=== PATIENT | female | born 1985 | race Caucasian/White ===

== ENCOUNTER 2017-08-17 08:00 | Outpatient (CLI) | payer OTHER ==
[2017-08-17 12:26] LABS: BILIRUBIN,URINE NEGATIVE (NEGATIVE); GLUCOSE, URINE (UA) NEGATIVE (NEGATIVE); KETONES,URINE (UA) NEGATIVE (NEGATIVE); LEUKOCYTE ESTERASE, URINE NEGATIVE (NEGATIVE); NITRITE,URINE NEGATIVE (NEGATIVE); OCCULT BLOOD,URINE NEGATIVE (NEGATIVE); PH,URINE 7.5 PH (5.0-7.5); PROTEIN,URINE TRACE mg/dL (NEGATIVE); UROBILINOGEN,URINE 0.2 (NORMAL) E.U./dL (NORMAL)
[2017-08-17 12:35] LABS: AMORPHOUS SEDIMENT,UR Few /LPF; BACTERIA,URINE None Seen /HPF (None Seen); CLARITY,URINE CLEAR (CLEAR); MUCUS,URINE Few Strands; RBC,URINE None Seen /HPF (0-5); SQUAMOUS EPITHELIAL CELL,UR FEW Squamous (<= Few)
[2017-08-17 12:52] LABS: BASOPHILS % (AUTO) 0.6 %; EOSINOPHILS # (AUTO) 0.3 10^3/uL (0.0-0.7); EOSINOPHILS % (AUTO) 3.8 %; HGB - HEMOGLOBIN 13.2 g/dL (12.0-16.0); LYMPHOCYTES # (AUTO) 1.4 10^3/uL (1.5-3.5); LYMPHOCYTES % (AUTO) 19.5 %; MEAN CORPUSCULAR VOLUME 88.2 fL (81.0-99.0); MEAN PLATELET VOLUME 9.7 fL (7.9-10.8); MONOCYTES # (AUTO) 0.4 10^3/uL (0.0-1.0); MONOCYTES % (AUTO) 4.8 %; NEUTROPHILS # (AUTO) 5.2 10^3/uL (1.5-6.6); NEUTROPHILS % (AUTO) 71.3 %; PLT - PLATELET COUNT 204 10^3/uL (130-450); RED BLOOD COUNT 4.38 10^6/uL (4.20-5.40); RED CELL DISTRIBUTION WIDTH 13.7 % (12.0-15.0); WHITE BLOOD COUNT 7.3 x10^3/uL (4.8-10.8)
[2017-08-18 13:16] LABS: HEPATITIS B SURFACE ANTIGEN NON-REACTIVE (NON-REACTIVE); HEPATITIS C ANTIBODY NON-REACTIVE (NON-REACTIVE)
[2017-08-18 15:27] LABS: HIV AG/AB 4TH GEN NON-REACTIVE (NON-REACTIVE)
== END 2017-08-17 08:01 | disposition home or self-care (01) ==
LOC: LAB.N 08:00
PROVIDERS: ATTEND Obstetrics & Gynecology
DX: Z34.81 Encounter for supervision of other normal pregnancy, first trimester (principal)
CPT/HCPCS: 36415; 81001; 81599; 85025; 86592; 86762; 86803; 86850; 86900; 86901; 87340; 87389

== ENCOUNTER 2017-08-31 08:00 | Outpatient (CLI) | payer OTHER | END 2017-08-31 08:01 | disposition home or self-care (01) | LOC: LAB.N 08:00 | PROVIDERS: ATTEND Obstetrics & Gynecology | DX: Z13.79 Encounter for other screening for genetic and chromosomal anomalies (principal) | CPT/HCPCS: 36415; 81599; 82105; 82677; 84702; 86336 ==

== ENCOUNTER 2017-09-29 08:00 | Outpatient (CLI) | payer OTHER ==
[2017-09-29 19:26] LABS: THYROID STIMULATING HORMONE 1.77 uIU/mL (0.34-5.60)
[2017-09-29 19:28] LABS: FREE T4 (FREE THYROXINE) 0.76 ng/dL (0.58-1.64)
== END 2017-09-29 08:01 ==
LOC: LAB.WCP 08:00
PROVIDERS: ATTEND Physician Assistant
DX: E03.9 Hypothyroidism, unspecified (principal)
CPT/HCPCS: 36415; 84439; 84443

== ENCOUNTER 2017-10-14 11:46 | Outpatient (CLI) | payer SELFPAY | END 2017-10-14 11:47 | disposition home or self-care (01) | LOC: LAB 11:46 | PROVIDERS: ATTEND Obstetrics & Gynecology | DX: Z01.89 Encounter for other specified special examinations (principal) | CPT/HCPCS: 36415 ==

== ENCOUNTER 2017-10-26 07:27 | Outpatient (CLI) | payer OTHER ==
--- NOTE | 2017-10-26 10:20 | Ultrasound Report ---
Procedure Date: 10/26/2017 Accession Number: [id number] / [id number] Procedure: US - OB Detailed Eval CPT Code: FULL RESULT: EXAM: COMPLETE OBSTETRICAL ULTRASOUND EXAM DATE: 10/26/2017 09:25 AM. CLINICAL HISTORY: anatomic survey. COMPARISON: None. TECHNIQUE: Real-time sonographic evaluation of the fetus performed by the director of exhibit development. Multiple guest relations representative static images were saved for review. Additional transvaginal imaging to more accurately evaluate cervical length/placental position/etc. DATING: EGA 23w 2d with CHARLES 02/20/2018 based on LMP. EGA 23w 5d with CHARLES 02/17/2018 based on the current ultrasound. GENERAL EVALUATION Laura . Cardiac activity: 133 bpm. movement: Visualized. Presentation: Norberto breech. Placenta: Posterior position. No evidence for previa. Umbilical cord: 3 vessel cord. Central placental cord origin. Amniotic fluid: Subjectively normal. MVP 5.1 cm. BIOMETRY Bi-Parietal Diameter (BPD): 5.69 cm, 23w 3d Head Circumference (HC): 21.3 cm, 23w 3d Abdominal Circumference (AC): 19.1 cm, 23w 6d Femur Length (FL): 4.3 cm, 24w 2d Estimated Weight: 646 gm, 74th percentile for 23w 5d. ANATOMY The intracranial structures, profile, face/nose/lips, spine, 4 chamber heart and outflow tracts, stomach, abdominal wall and cord insertion, diaphragm, kidneys, bladder, and extremities were visualized and demonstrate no abnormality. MATERNAL STRUCTURES Uterus: Unremarkable. Cervix: Long and closed. Right ovary/adnexa: Unremarkable. Left ovary/adnexa: Unremarkable. Free fluid: None. IMPRESSION: 1. Laura live intrauterine with gestational age 23w 5d based on current ultrasound. 2. Estimated weight is within expected limits for assigned dating. 3. Normal anatomic survey. No anatomic abnormalities are detected at this time. RADIA
== END 2017-10-26 07:28 | disposition home or self-care (01) ==
LOC: DI 07:27
PROVIDERS: ATTEND Obstetrics & Gynecology
DX: Z36.9 Encounter for antenatal screening, unspecified (principal)
CPT/HCPCS: 76811

== ENCOUNTER 2017-11-30 11:13 | Outpatient (CLI) | payer OTHER ==
[2017-11-30 19:26] LABS: THYROID STIMULATING HORMONE 1.09 uIU/mL (0.34-5.60)
[2017-11-30 19:28] LABS: FREE T4 (FREE THYROXINE) 0.63 ng/dL (0.58-1.64)
[2017-11-30 19:53] LABS: HGB - HEMOGLOBIN 12.6 g/dL (12.0-16.0); MEAN CORPUSCULAR HEMOGLOBIN 32.2 pg (27.0-31.0); MEAN CORPUSCULAR HGB CONC 34.2 g/dL (32.0-36.0); MEAN PLATELET VOLUME 9.5 fL (7.9-10.8); RED BLOOD COUNT 3.92 10^6/uL (4.20-5.40); WHITE BLOOD COUNT 10.2 x10^3/uL (4.8-10.8)
== END 2017-11-30 11:14 | disposition home or self-care (01) ==
LOC: LAB.N 11:13
PROVIDERS: ATTEND Obstetrics & Gynecology
DX: Z36.9 Encounter for antenatal screening, unspecified (principal); Z13.29 Encounter for screening for other suspected endocrine disorder
CPT/HCPCS: 36415; 82950; 84439; 84443; 84481; 85027; 86850

== ENCOUNTER 2018-01-19 09:15 | Outpatient (CLI) | payer OTHER ==
[2018-01-19 09:39] VITALS: BP 119/77
== END 2018-01-19 10:45 | disposition home or self-care (01) ==
LOC: WFO 09:15 → FBP 09:19 → WFO 10:45
PROVIDERS: ATTEND Obstetrics & Gynecology
DX: Z03.79 Encounter for other suspected maternal and fetal conditions ruled out (principal)
CPT/HCPCS: 99212

== ENCOUNTER → 2018-01-19 | Outpatient (CLI) | payer OTHER | LOC: LAB.R 15:13 | PROVIDERS: ATTEND Registered Nurse | DX: Z36.85 Encounter for antenatal screening for Streptococcus B (principal) | CPT/HCPCS: 87081 ==

== ENCOUNTER 2018-01-26 10:36 | Outpatient (CLI) | payer OTHER ==
--- NOTE | 2018-01-26 15:42 | Ultrasound Report ---
Reason: SIZE GREATER THAN DATES Procedure Date: 01/26/2018 Accession Number: [id number] / [id number] Procedure: US - OB F/U or Repeat CPT Code: FULL RESULT: EXAM: COMPLETE OBSTETRICAL ULTRASOUND EXAM DATE: 01/26/2018 11:45 AM. CLINICAL HISTORY: anatomic survey. COMPARISON: OB Detailed Evaluation 10/26/2017 7:45 AM. TECHNIQUE: Real-time sonographic evaluation of the fetus performed by the throat cutter. Multiple group sales representative static images were saved for review. Additional transvaginal imaging to more accurately evaluate cervical length/placental position/etc. DATING: Established EGA 36 weeks 3 days with CHARLES 02/20/2018 based on last menstrual period which is concordant with the prior ultrasound. EGA 36 weeks 3 days with CHARLES 02/20/2018 based on last menstrual period which was concordant with a prior ultrasound. EGA 40 weeks and 0 days with CHARLES 01/26/2018 based on the current ultrasound. GENERAL EVALUATION Laura . Cardiac activity: 142 bpm. movement: Visualized. Presentation: Transverse Placenta: Fundal position. No evidence for previa. Umbilical cord: 3 vessel cord. Amniotic fluid: Subjectively normal. MVP 15 cm. BIOMETRY Bi-Parietal Diameter (BPD): 9.53 cm, 38 weeks 6 days Head Circumference (HC): 35.5 cm, 41 weeks 4 days Abdominal Circumference (AC): 34.9 cm, 38 weeks 6 days Femur Length (FL): 7.3 cm, 37.3 Estimated Weight: 3612 g, 97th percentile for assigned gestational age by LMP of 36 weeks 3 days. ANATOMY Within limitations for late dates and size, no abnormalities demonstrated. MATERNAL STRUCTURES Uterus: Unremarkable. Cervix: Long and closed. Transabdominal length 7.6 cm. Right ovary/adnexa: Not specifically imaged Left ovary/adnexa: Not specifically imaged Free fluid: None appreciated IMPRESSION: 1. Laura live intrauterine with gestational age 36 weeks 3 days based on last menstrual period.. 2. Fetus is enlarged for dates. Estimated weight is at the 97th percentile for assigned dating 36 weeks 3 days by LMP. 3. Within limitations of size, no abnormalities detected. RADIA
== END 2018-01-26 10:37 | disposition home or self-care (01) ==
LOC: DI 10:36
PROVIDERS: ATTEND Obstetrics & Gynecology
DX: Z36.4 Encounter for antenatal screening for fetal growth retardation (principal); Z3A.36 36 weeks gestation of pregnancy
CPT/HCPCS: 76816

== ENCOUNTER 2018-02-15 14:23 | Outpatient (CLI) | payer OTHER ==
[2018-02-15 14:59] LABS: BASOPHILS % (AUTO) 0.5 %; EOSINOPHILS # (AUTO) 0.3 10^3/uL (0.0-0.7); EOSINOPHILS % (AUTO) 2.7 %; HGB - HEMOGLOBIN 11.4 g/dL (12.0-16.0); LYMPHOCYTES # (AUTO) 1.4 10^3/uL (1.5-3.5); LYMPHOCYTES % (AUTO) 14.3 %; MEAN CORPUSCULAR HEMOGLOBIN 30.8 pg (27.0-31.0); MEAN CORPUSCULAR HGB CONC 35.1 g/dL (32.0-36.0); MEAN CORPUSCULAR VOLUME 87.8 fL (81.0-99.0); MEAN PLATELET VOLUME 9.9 fL (7.9-10.8); MONOCYTES # (AUTO) 0.7 10^3/uL (0.0-1.0); MONOCYTES % (AUTO) 7.7 %; NEUTROPHILS # (AUTO) 7.1 10^3/uL (1.5-6.6); NEUTROPHILS % (AUTO) 74.8 %; PLT - PLATELET COUNT 149 10^3/uL (130-450); RED BLOOD COUNT 3.71 10^6/uL (4.20-5.40); RED CELL DISTRIBUTION WIDTH 14.9 % (12.0-15.0); WHITE BLOOD COUNT 9.5 x10^3/uL (4.8-10.8)
== END 2018-02-15 14:24 | disposition home or self-care (01) ==
LOC: LAB 14:23
PROVIDERS: ATTEND Obstetrics & Gynecology
DX: Z01.812 Encounter for preprocedural laboratory examination (principal); O34.211 Maternal care for low transverse scar from previous cesarean delivery
CPT/HCPCS: 36415; 85025; 86850; 86900; 86901

== ENCOUNTER 2018-02-17 05:08 | Inpatient (IN) | payer OTHER ==
--- NOTE | 2018-02-15 19:00 | HISTORY & PHYSICAL EXAMINATION ---
IDENTIFICATION: A 32-year-old G3, P2-0-0-2 with 39-4/7 week intrauterine . EDC is 02/20/2018 by LMP of 05/16/2017, 11-week ultrasounds consistent with dates. HISTORY OF PRESENT ILLNESS: Patient is a patient of [facility] presents today for regularly scheduled preoperative visit. Patient has seen us since the beginning of this at 10 weeks' gestation. She has had routine care and this has been essentially unremarkable. Patient has had 2 deliveries for sons Neal and Eduardo. Neal was a delivery secondary to suspected macrosomia. He weighed 9 pounds 12 ounces and second son Eduardo weighed 9 pounds 2 ounces. I discussed with the patient my recommendation to proceed with a delivery given her two prior deliveries. I discussed with her the risks, benefits, alternatives, indications, expectations of surgery. This included, but was not limited to an inadvertent laceration, cauterization or ligation of the adjacent intestines, bladder and ureters. Also, with this surgery, she would need to have a repeat delivery for future pregnancies. After patient's questions were answered to her satisfaction, she verbalized her desire to proceed with surgery. Consent forms have been signed. Patient is doing well otherwise today. She denies any nausea, vomiting, fevers, chills, or diarrhea. She states that the baby is moving well. She denies any vaginal bleeding or loss of fluid. PAST MEDICAL HISTORY: Resolved hypothyroidism. She did take medications in 2016. PAST SURGICAL HISTORY 1. Thyroid biopsy. 2. Tonsillectomy and adenoidectomy. 3. delivery x2. ALLERGIES: NO KNOWN DRUG ALLERGIES. MEDICATIONS: vitamins. SOCIAL HISTORY: Denies any tobacco, alcohol or illicit drug use. 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 She is accompanied today with her mom Aliyah. She has 2 other children Neal and Eduardo. This is a male fetus. Patient's preferred pharmacy is [facility] in [place]. She plans to breast feed via pumping. She breastfed for 3 months and then 6 months with her first 2 children. She denies any problems with . Her preferred wringer and setter is Dr. Alamo. PAST SURGICAL HISTORY: Two term deliveries PAST GYNECOLOGIC HISTORY: She denies any abnormal Pap smears or sexually transmitted diseases. FAMILY HISTORY: Noncontributory. No female carcinoma. REVIEW OF SYSTEMS: Negative unless otherwise stated. OBJECTIVE VITAL SIGNS: Height is 62.75 inches, weighs 206 pounds, blood pressure 110/74, BMI is 36.9. GENERAL: Patient is a well-developed, well-nourished, female, in no apparent distress. She is alert and oriented x3. Patient is very pleasant, easy to speak to. HEENT: Within normal limits. She does wear glasses. CARDIOVASCULAR: Regular. No murmurs or rubs. PULMONARY: Lungs clear to auscultation bilaterally. ABDOMEN: Gravid, nontender. Fetus appears to be vertex by Rajat's with estimated weight of 10 pounds. laboratories reveal that she is hep C nonreactive, hep B nonreactive. HIV nonreactive, RPR nonreactive. White blood count 7.3, H and H 13.2 and 38.7, platelets 204. She is O positive, antibody screen is negative. Rubella is immune. On 07/30/2017 pap is negative as well as high-risk HPV screening. GC and CT were both negative. 10/18/2017 harmony was negative x3 and a male fetus was noted. Her anatomical anatomical survey was consistent with dates and within normal limits. The placenta is posterior with a 3-vessel cord. One-hour GTT was 111 with a white count of 10.2, H and H of 12.6 and 36.8, platelets 234. TSH was normal at 1.09 and free T4 0.63. Antibody screen negative. GBS was negative. ASSESSMENT: 1. A 32-year-old G3, P2-0-0-2 with a 39 and 2/7 week intrauterine . 2. History of delivery x2. PLAN: 1. We will proceed to a scheduled repeat delivery on 02/17/2018. 2. Patient can get her labs in preparation for surgery, including a CBC and type and screen. 3. Prescriptions for Tylenol, Motrin, Colace, simethicone and oxycodone have been given to patient for postoperative recovery. 4. We will anticipate using the Prevena wound VAC and patient to return on Thursday for removal of her wound VAC. TD: 02/15/2018 14:13 COY
[2018-02-17] MEDS ORDERED: SODIUM CHLORIDE FLUSH 0.9% 10 ML SYRINGE IVP PRN (05:30)
[2018-02-17] MEDS ORDERED: ONDANSETRON 4 MG/2 ML VIAL IVP PRN (05:30)
[2018-02-17] MEDS: LACTATED RINGERS 1,000 ML IV SCH ×3 (05:44→18:51)
[2018-02-17] MEDS ORDERED: ceFAZolin 2 GM/50 ML 2 GM/50 ML BAG IV ONE (07:00)
[2018-02-17] MEDS ORDERED: CITRIC ACID/SODIUM CITRATE 15 ML UDC PO ONE (07:00)
--- NOTE | 2018-02-17 07:24 | ANESTHESIA ---
Pre-Anesthesia VS, & Labs - Diagnosis term with previous c section - Procedure c section Vital Signs: Temp Pulse Resp BP Pulse Ox 36.7 C 97 18 127/78 97 02/17/18 07:19 02/17/18 07:19 02/17/18 07:19 02/17/18 07:19 02/17/18 07:19 Height 5 ft 2 in Weight (kg) 93.44 kg - NPO >8 hours - Is Patient ?: Yes - Lab Results Lab results reviewed: Yes Home Medications and Allergies Active Medications Cefazolin Sodium/Dextrose (Ancef 2 Gm/50 Ml) 2 gm in 50 mls @ 100 mls/hr IV ONCE ONE Stop: 02/17/18 07:29 Last Admin: 02/17/18 06:12 Dose: 100 mls/hr Lactated Ringer's (Lr) 1,000 mls @ 150 mls/hr IV .Q6H40M YASEMIN Last Admin: 02/17/18 05:44 Dose: 150 mls/hr Oxytocin/Sodium Chloride (Pitocin/Sodium Chloride) 500 mls @ 1 mls/hr IV TITR YASEMIN; Protocol Ondansetron HCl (Zofran Inj) 4 mg IVP Q4H PRN PRN Reason: Nausea / Vomiting Sodium Chloride (Normal Saline Flush 0.9%) 10 ml IVP PRN PRN PRN Reason: NEEDED PER PROVIDER ORDERS Sodium Chloride (Normal Saline Flush 0.9%) 10 ml IVP 0100,0900,1700 [facility] Allergies/Adverse Reactions: Allergies Allergy/AdvReac Type Severity Reaction Status Date / Time No Known Drug Allergies Allergy Verified 03/24/15 18:45 Anes History & Medical History - Anesthetic History Anesthesia Complications: reports: Post-Operative Nausea/Vomiting Family history of Anesthesia Complications: Denies Family history of Malignant Hyperthermia: Denies - Medical History Smoking Status: Never smoker - Surgical History Eyes Ears Nose Throat (EENT): Tonsil/Adenoidectomy Gynecologic: section Exam General: Alert, Oriented x3, Cooperative, No acute distress Dental: WNL Mouth Openin Fingerbreadth Neck Mobility: Normal Mallampati classification: II Thyromental Distance: 4-6 cm Respiratory: Lungs clear, Normal breath sounds, No respiratory distress, No accessory muscle use Cardiovascular: Regular rate, Normal S1, Normal S2, No murmurs Mental/Cognitive Status: Alert/Oriented X3, Normal for patient Plan Anesthesia Type: Spinal Consent for Procedure(s) Verified and Reviewed: Yes Code Status: Attempt Resuscitation ASA classification: 2-Mild systemic disease Is this case an emergency?: No
[2018-02-17] MEDS ORDERED: LACTATED RINGERS 1,000 ML IV ONE ×2 (08:14→08:33)
[2018-02-17] MEDS ORDERED: DEXAMETHASONE 4 MG/ML VIAL IVP ONE (08:25)
[2018-02-17] MEDS ORDERED: PHENYLEPHRINE 50 MG/5 ML VIAL IV ONE (08:25)
[2018-02-17] MEDS ORDERED: KETOROLAC 30 MG/ML VIAL IVP ONE (08:25)
[2018-02-17] MEDS ORDERED: ePHEDrine 50 MG/ML VIAL IVP ONE (08:25)
[2018-02-17] MEDS ORDERED: ONDANSETRON 4 MG/2 ML VIAL IVP ONE (08:25)
[2018-02-17] MEDS ORDERED: MAGNESIUM HYDROXIDE 2,400 MG/30 ML UDC PO PRN (09:00)
[2018-02-17] MEDS ORDERED: diphenhydrAMINE 25 MG CAPSULE PO PRN (09:00)
--- NOTE | 2018-02-17 09:05 | OPERATIVE REPORT ---
Operative Report - General Admit Date: 02/17/18 - Other Other Information/Narrative: Date of operation: 02/17/2018 Surgeon: Khadra Villarreal DO FACOG Field Trainer: Ger Edgar MD FACOG Hire Car Driver: Akira More CRNA Anesthesia: Spinal Pre-Op Dx: 1. 32 yo with a 39w5d IUP 2. Prior CD x 2 Post-op Dx: 1. 32 yo with a 39w5d IUP 2. Prior CD x 2 Procedure: Repeat Delivery via LTCS Findings: Viable male infant, breech, named Yomi. Apgars 8/9. Normal uterus, ovaries and fallopian tubes. Specimens: 1. Cord blood 2. Placenta EBL: 800 mL Drains: 1. Worley to gravity 2. Prevena wound vac Complications: None Dictation: [id number]
[2018-02-17] MEDS: SODIUM CHLORIDE FLUSH 0.9% 10 ML SYRINGE IVP SCH ×2 (09:56→14:38)
[2018-02-17] MEDS: OXYTOCIN/SODIUM CHLORIDE 500 ML IV SCH ×2 (09:57→10:58)
[2018-02-17] MEDS: CELECOXIB 100 MG CAPSULE PO SCH (11:23)
[2018-02-17] MEDS: DOCUSATE SODIUM 100 MG CAPSULE PO SCH (11:23)
[2018-02-17] MEDS: ACETAMINOPHEN 500 MG TABLET PO SCH ×2 (11:26→20:33)
[2018-02-17] MEDS: oxyCODONE 5 MG TABLET PO SCH ×4 (12:41→20:32)
--- NOTE | 2018-02-17 13:31 | OPERATIVE REPORT ---
DATE OF OPERATION: 02/17/2018 SURGEON: Khadra Villarreal DO, FACOG. DECK MECHANIC: Ger Edgar MD, FACOG. ANESTHESIA PROVIDER: Yohan More CRNA. ANESTHESIA: Spinal. PREOPERATIVE DIAGNOSES 1. A 32-year-old G3, P2-0-0-2 with 39-5/7-week intrauterine . 2. Prior delivery x2. POSTOPERATIVE DIAGNOSES 1. A 32-year-old G3, P2-0-0-2 with 39-5/7-week intrauterine . 2. Prior delivery x2. PROCEDURE: Repeat delivery via low transverse section. FINDINGS: A viable male in breech presentation, named Yomi. Apgars are 8 and 9 at one and five minutes respectively and weight 4406 gm. Normal ovaries, fallopian tubes, and uterus were noted. SPECIMENS 1. Cord blood. 2. Placenta. ESTIMATED BLOOD LOSS: 800 mL DRAINS 1. Worley catheter to gravity. 2. Prevena wound VAC. COMPLICATIONS: None. BRIEF HISTORY: This is a patient of [facility] with whom I have been taking care throughout the majority of her . She was a transfer of care from the [facility]. Patient's course has been remarkable for 2 prior deliveries. The first one was secondary to suspected macrosomia. The second one was a scheduled repeat delivery. I discussed with patient the risks, benefits, alternatives, indications, expectations of repeat delivery. Included in our discussion were the risks of hemorrhage, infection, damage to internal organs, which may include but is not limited to an inadvertent laceration, cauterization or ligation of the adjacent intestines, bladder, and ureters. Furthermore, with a delivery, she would have to have a repeat delivery for any future pregnancies. After all of patient's questions were answered to her satisfaction, she verbalized a desire to proceed with surgery. Consent forms have been signed. OPERATION DETAIL: Patient was identified, consented, and taken to the operating room where IV access was already in place. She was then given satisfactory spinal anesthesia as per Raciel More. Sequential compression devices were placed on her lower extremities and turned on. Worley catheter was placed in her bladder, and she was prepped and draped in the normal sterile fashion in a dorsal supine position with leftward tilt. Patient was given 2 grams of Ancef prior to incision. Skin testing showed that she had adequate anesthesia. Timeout was performed, where we correctly identified the site of procedure, the patient, and her date of . Patient's prior Pfannenstiel incision was first sharply removed. This incision was then carried to the underlying layer of fascia with electrocautery. The fascia was then nicked in midline and extended laterally. Rectus muscles were then dissected off the fascia. Rectus muscles were then diverted sharply vertically in the midline. The peritoneum was then entered bluntly. A bladder flap was then created by dissecting off the vesicouterine peritoneum. It was noted there was significantly thin uterine window. The hysterotomy was made in transverse U-shaped fashion in the lower uterine segment. Amniotomy revealed clear fluid. The infant's feet were identified and gently pulled through the hysterotomy after a green towel was placed around the . The was then delivered through to the level of the nipples. The left side was rotated anteriorly, and the left arm was then delivered by placing the arm medially and then inferiorly in order to avoid hyperextension of the arm. In a similar fashion, the left shoulder was rotated anteriorly, and the arm was then swept medially and inferiorly. A finger was then placed in the fetus's mouth in order to flex the neck, and the baby was delivered with the help of fundal pressure. Nose and mouth were suctioned with a bulb syringe. Umbilical cord was doubly clamped and cut, and the infant was then handed off to waiting OB nurse. Cord blood was obtained and sent off. The uterus was then massaged internally and the placenta delivered manually. Uterus then delivered out of the abdomen and cleared of all clots and debris. The hysterotomy was repaired with 2 sutures of 0 Vicryl, first in a running locked fashion, second a Lembert stitch in order to obtain hemostasis. The uterus was then returned to the abdomen, and the abdomen was then copiously irrigated. Hemostasis was noted. The peritoneum was then closed with a running stitch of 2-0 Vicryl. The same stitch was used to reapproximate the rectus muscles. Fascia was then closed with 2 stitches of 0 Vicryl in a running fashion. Cristhian's fascia was then reapproximated with a running stitch of 0 Vicryl. Skin was closed with a 4-0 Monocryl in a subcuticular fashion. Finally, Prevena wound VAC was placed on top of incision. Patient tolerated the procedure well and was taken back to recovery room in stable and awake condition. She will be given routine care, including kcpjux-doe-vzodu NSAIDs and Tylenol. She will also be given routinely scheduled oxycodone. I anticipate removing her Worley catheter in the a.m. All sponge, lap, and needle counts were correct x2 as per nurse report. TD: 02/17/2018 10:44 MTDKassandra
[2018-02-17] MEDS: SIMETHICONE CHEW 80 MG TABLET PO SCH ×2 (13:35→20:33)
[2018-02-18] MEDS: DOCUSATE SODIUM 100 MG CAPSULE PO SCH ×3 (00:24→21:08)
[2018-02-18] MEDS: oxyCODONE 5 MG TABLET PO SCH ×6 (00:24→21:10)
[2018-02-18] MEDS: CELECOXIB 100 MG CAPSULE PO SCH ×3 (00:24→21:09)
[2018-02-18] MEDS: ACETAMINOPHEN 500 MG TABLET PO SCH ×3 (05:25→21:09)
[2018-02-18] MEDS: SIMETHICONE CHEW 80 MG TABLET PO SCH ×3 (09:18→17:55)
[2018-02-18] MEDS: SODIUM CHLORIDE FLUSH 0.9% 10 ML SYRINGE IVP SCH ×3 (09:18→18:50)
[2018-02-18] MEDS: LACTATED RINGERS 1,000 ML IV SCH ×3 (09:18→14:14)
--- NOTE | 2018-02-18 12:51 | PROVIDER PROGRESS NOTE ---
Subjective - Prog Note Date Prog Note Date: 02/18/18 Prog Note Time: 12:48 - Subjective Pt reports feeling: Improved Subjective: Sherry lying in bed with Yomi in the bassinet at bedside. Mom Christie in the visitor's bed. Sherry's pain is well controlled with 10 mg oxycodone. Worley removed and she has ambulated and urinated. Otherwise doing well. Objective - Vital Signs/Intake & Output Vital Signs: Vital Signs x48h Temp Pulse Resp BP Pulse Ox 02/18/18 07:45 99.1 F 81 15 101/62 97 Intake & Output: Intake & Output 02/15/18 02/16/18 02/17/18 02/18/18 23:59 23:59 23:59 23:59 Intake Total 4090 675 Output Total 1080 2285 Balance 3010 -1610 - Objective General Appearance: positive: No acute distress Eyes Bilateral: positive: Normal inspection Abdomen: positive: Non-tender (Wound vac in place and working well) Neurologic/Psychiatric: positive: Oriented x3, CN's nml (2-12) Assessment/Plan - Problem List (1) delivery delivered Impression: 32 yo S/p repeat CD 02/17/2018, POD #1 Normal recovery Continue current care Remove saline IV lock Shower today Anticipate home tomorrow [id number]
[2018-02-18] MEDS ORDERED: WITCH HAZEL/GLYCERIN 1 EACH MED..PAD TOP PRN (17:44)
[2018-02-18] MEDS ORDERED: HYDROCORTISONE 1% CREAM 28 GM TUBE PR PRN (17:44)
--- NOTE | 2018-02-18 17:49 | DISCHARGE SUMMARY ---
DATE OF ADMISSION: 02/17/2018 DATE OF DISCHARGE: 02/19/2018 ADMISSION DIAGNOSES: 1. A 32-year-old G3, P2-0-0-2, with a 39-4/7 week intrauterine . 2. History of delivery x2. DIAGNOSES ON DISCHARGE: 1. 32-year-old G3, P3-0-0-3, status post repeat delivery on 02/17/2018. 2. Normal recovery. BRIEF HISTORY: This is a patient who of [facility] who presented to the hospital on 02/17/2018 for a scheduled repeat delivery. She underwent an unremarkable delivery and delivered a viable male infant, named Yomi. Apgars were 8 and 9 at 1 and 5 minutes respectively and he weighed 4406 grams, EBL was 800 mL. There were no complications. Patient's postoperative course has been unremarkable. She is ambulating and tolerating a regular diet. She is urinating without difficulty, and her pain was controlled with oral medications and it is also reported to be latching well. I anticipate sending patient home on postoperative day #2, 02/19/2018. Patient has already been instructed to take ibuprofen and Tylenol as her first form of pain control. Specifically, 800 mg of Motrin q. 6 hours and 1000 mg of Tylenol q.8 hours. In addition, patient has been given a prescription for oxycodone 5 mg. Patient will continue these medications at home and is to call should she have any worsening fevers, chills, abdominal pain or vaginal bleeding. She should not lift more than a gallon of milk at home and has been given instructions on how to care for her wound VAC. Patient is ton see me early next week for removal of her Prevena wound VAC. TD: 02/18/2018 13:02 COY
[2018-02-19] MEDS: oxyCODONE 5 MG TABLET PO SCH ×4 (01:11→13:35)
[2018-02-19] MEDS: ACETAMINOPHEN 500 MG TABLET PO SCH ×2 (05:11→13:36)
[2018-02-19] MEDS: CELECOXIB 100 MG CAPSULE PO SCH (09:20)
[2018-02-19] MEDS: DOCUSATE SODIUM 100 MG CAPSULE PO SCH (09:23)
[2018-02-19] MEDS: SIMETHICONE CHEW 80 MG TABLET PO SCH (09:23)
--- NOTE | 2018-02-19 09:31 | PROVIDER PROGRESS NOTE ---
Subjective - Prog Note Date Prog Note Date: 02/19/18 Prog Note Time: 09:15 - Subjective Pt reports feeling: Improved Subjective: Standing since her hemorrhoids are bothering her. Had a difficult time last night due to pain from her hemorrhoids. Otherwise doing well. No nausea, vomiting, fevers, chills. Normal lochia. Pain controlled with oral meds. Ambulating and tolerating a regular diet. Verbalizes her desire to go home. Objective - Vital Signs/Intake & Output Vital Signs: Vital Signs x48h Temp Pulse Resp BP BP Pulse Ox 02/19/18 08:34 97.2 F L 76 18 115/62 100 02/19/18 05:06 98.1 F 81 16 101/59 L 100 Intake & Output: Intake & Output 02/16/18 02/17/18 02/18/18 02/19/18 23:59 23:59 23:59 23:59 Intake Total 4090 1175 Output Total 1080 2735 Balance 3010 -1560 - Objective General Appearance: positive: No acute distress Eyes Bilateral: positive: Normal inspection Abdomen: positive: Non-tender (Wound vac in place and working well.) Skin: positive: Color nml Neurologic/Psychiatric: positive: Oriented x3, Mood/affect nml Assessment/Plan - Problem List (1) delivery delivered Impression: 32 yo s/p repeat CD, POD #2 Normal recovery Continue current care Proctofoam for hemorrhoids Discharge to home Follow up next week for removal of Prevena wound vac Call for worsening fevers, chills, abdominal pain or vaginal bleeding. Take motrin, tylenol and oxycodone as recommended Discharge Plan Disposition: 01 Home, Self Care Condition: Good Diet: Regular Activity Restrictions: Activity as Tolerated Shower Restrictions: No Driving Restrictions: Yes (Do not drive after taking oxycodone) Weight Bearing: Full Weight No Smoking: If you smoke, Please STOP! Call for help. Follow-up with: Elmira Copeland PA [Primary Care Provider] -
[2018-02-19 13:08] VITALS: BP 121/72
== END 2018-02-19 14:30 | disposition home or self-care (01) | DRG 787 ==
LOC: FBP 05:08
PROVIDERS: ADMIT Obstetrics & Gynecology; ATTEND Obstetrics & Gynecology
PROC: 10D00Z1 Extraction of Products of Conception, Low, Open Approach (ICD-10-PCS; principal; 2018-02-17 07:30)
DX: O34.211 Maternal care for low transverse scar from previous cesarean delivery (principal); O87.2 Hemorrhoids in the puerperium; N85.8 Other specified noninflammatory disorders of uterus; Z3A.39 39 weeks gestation of pregnancy; Z37.0 Single live birth

== ENCOUNTER 2018-03-11 08:00 | Outpatient (CLI) | payer OTHER | END 2018-03-11 23:59 | disposition home or self-care (01) | LOC: LAB.R 08:00 | PROVIDERS: ATTEND Obstetrics & Gynecology | DX: L08.89 Other specified local infections of the skin and subcutaneous tissue (principal) | CPT/HCPCS: 87070; 87075; 87147; 87186; 87205 ==